=== PATIENT | female | born 1990 | race Hispanic/Latino ===

== ENCOUNTER 2022-10-30 10:32 | Emergency (ER) | payer MEDICAID ==
[~2022-10-30] VITALS: Ht 152.4 cm; Wt 106.6 kg
[2022-10-30 10:36] VITALS: BP 127/49
[2022-10-30] MEDS ORDERED: SOLU-MEDROL 125MG VIAL IVP ONE (11:00)
[2022-10-30] MEDS ORDERED: 0.9%NACL 1000ML 1,000 ML IV SCH (11:00)
[2022-10-30] MEDS ORDERED: FAMOTIDINE 20MG VIAL IV ONE (11:00)
[2022-10-30] MEDS ORDERED: FAMO20TA8 PO (11:42)
[2022-10-30] MEDS ORDERED: PRED5TAB PO (11:42)
== END 2022-10-30 11:53 | disposition home or self-care (01) ==
LOC: EDH 10:32
DX: L53.9 Erythematous condition, unspecified (principal); R21 Rash and other nonspecific skin eruption; L29.9 Pruritus, unspecified; T36.0X5A Adverse effect of penicillins, initial encounter; Y92.89 Other specified places as the place of occurrence of the external cause
CPT/HCPCS: 99284; 96374; 96361; 96375; J7030; J2930; S0028; J3490

== ENCOUNTER 2023-12-08 02:04 | Emergency (ER) | payer MEDICAID, OTHER ==
[~2023-12-08] VITALS: Ht 160 cm; Wt 108.9 kg
[~2023-12-08 02:04] MED LIST: FAMO20TA8 PO; PRED5TAB PO
[2023-12-08 02:27] LABS: RAPID GROUP A STREP negative (NEGATIVE)
[2023-12-08 02:33] LABS: SARS-CoV-2, RNA, NAAT NEGATIVE SARS CoV-2 (NEGATIVE)
[2023-12-08 02:37] LABS: INFLUENZA TYPE A Negative For Type A (NEGATIVE); INFLUENZA TYPE B Negative For Type B (NEGATIVE)
[2023-12-08 02:38] LABS: ADD UA MICROSCOPIC YES; APPEARANCE,URINE CLEAR (CLEAR); BILIRUBIN,URINE NEGATIVE (NEGATIVE); COLOR,URINE LIGHT-YELLOW (YELLOW); GLUCOSE, URINE (UA) NEGATIVE (NEGATIVE); KETONES,URINE NEGATIVE (NEGATIVE); LEUKOCYTE ESTERASE ,URINE NEGATIVE Leu/uL (NEGATIVE); NITRATE,URINE NEGATIVE (NEGATIVE); OCCULT BLOOD,URINE NEGATIVE (NEGATIVE); PH,URINE 5.5 (5.0-8.0); PROTEIN,URINE 10 mg/dL (NEGATIVE); UROBILINOGEN,URINE 0.2 mg/dL (0.2-1.0)
[2023-12-08 02:39] LABS: BACTERIA,URINE RARE /HPF (None Seen); MUCUS,URINE FEW LPF (None Seen); RBC,URINE 0-1 /HPF (0-1); SQUAMOUS EPITHELIAL CELL,UR FEW /HPF (0-2); WBC,URINE 0-1 /HPF (0-1)
[2023-12-08 02:40] LABS: HCG,QUALITATIVE URINE NEGATIVE (NEGATIVE)
[2023-12-08 04:29] VITALS: BP 127/62; PULSE 84; RESP 20; O2SAT 98
[2023-12-08] MEDS ORDERED: IBUP-1493 PO (04:40)
== END 2023-12-08 04:51 | disposition home or self-care (01) ==
LOC: EDH 02:04
DX: G44.209 Tension-type headache, unspecified, not intractable (principal); Z20.822 Contact with and (suspected) exposure to COVID-19; Z79.899 Other long term (current) drug therapy; Z98.890 Other specified postprocedural states; Z88.0 Allergy status to penicillin
CPT/HCPCS: 81001; 81025; 87635; 87804; 87880